=== PATIENT | male | born 1950 | race Caucasian/White ===

== ENCOUNTER 2020-04-28 14:06 | Emergency (ER) | payer MEDICARE ==
[2020-04-28] MEDS ORDERED: Ibuprofen 200 MG TAB ONE (14:36)
--- NOTE | 2020-04-28 14:53 | RAD ---
XR Forearm Rt 2 View STANDARD HISTORY: Injury, right forearm pain FINDINGS: The right forearm bones appear intact.
== END 2020-04-28 15:05 | disposition home or self-care (01) ==
LOC: MADERS 14:06
DX: S50.11XA Contusion of right forearm, initial encounter (principal); Z71.6 Tobacco abuse counseling; E78.5 Hyperlipidemia, unspecified; E78.00 Pure hypercholesterolemia, unspecified; E78.1 Pure hyperglyceridemia; I10 Essential (primary) hypertension; J44.9 Chronic obstructive pulmonary disease, unspecified; F17.210 Nicotine dependence, cigarettes, uncomplicated; W20.8XXA Other cause of strike by thrown, projected or falling object, initial encounter
CPT/HCPCS: 99406